=== PATIENT | female | born 2005 | race Caucasian/White ===

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

== ENCOUNTER → 2024-01-26 11:32 | Outpatient (BNVA) | payer MEDICAID, SELFPAY | PROVIDERS: Visit Provider Nurse Practitioner Women's Health | DX: R10.2 Pelvic and perineal pain; F41.9 Anxiety disorder, unspecified; F32.A Depression, unspecified | CPT/HCPCS: 81025; 84315 ==

== ENCOUNTER → 2024-01-27 10:53 | Outpatient (BNVA) | payer MEDICAID, SELFPAY | PROVIDERS: Visit Provider Nurse Practitioner Women's Health | DX: R10.2 Pelvic and perineal pain (principal) | CPT/HCPCS: 76830 ==

== ENCOUNTER 2024-11-17 22:40 | Inpatient (IN) | payer MEDICAID, SELFPAY ==
[2024-11-17 22:57] VITALS: BP 96/62; PULSE 111; RESP 16; TEMP 37.3; O2SAT 100
--- NOTE | 2024-11-17 23:12 | PC.NURSE ---
96 Hour Involuntary Hold Patient Rights have been reviewed with the patient and a copy of the same has been provided to her. Teacher Industrial [employer] Bev was present at the bedside during the presentation of Rights.
--- NOTE | 2024-11-17 23:15 | W.ED.PSYCHS ---
HPI - Psych General: Chief Complaint: Psychiatric Symptoms Stated Complaint: Si wants someone to talk to Time Seen by Provider: 11/17/24 23:09 History of Present Illness: 19-year-old female with history of depression and previous suicidal ideation admissions and self-harm in the past who presents to the emergency room with worsening depression and suicidal thoughts. She has no specific plan. She and attempt to cut her wrist 2 years ago. She sees a psychiatrist and takes Abilify. Related Data Previous Rx's ?Medication ?Instructions ?Recorded estradiol 0.01% (0.1 mg/gram) 1 g vaginal DAILY #42.5 grams 02/12/24 vaginal cream Allergies Allergy/AdvReac Type Severity Reaction Status Date / Time kiwi Allergy Unknown Unknown Uncoded 02/12/24 08:14 Review of Systems Narrative: Constitutional symptoms: Negative except as documented in HPI. Skin symptoms: Negative except as documented in HPI. Eye symptoms: Negative except as documented in HPI. ENMT symptoms: Negative except as documented in HPI. Respiratory symptoms: Negative except as documented in HPI. Cardiovascular symptoms: Negative except as documented in HPI. Gastrointestinal symptoms: Negative except as documented in HPI. Genitourinary symptoms: Negative except as documented in HPI. Musculoskeletal symptoms: Negative except as documented in HPI. Neurologic symptoms: Negative except as documented in HPI. Psychiatric symptoms: Negative except as documented in HPI. Endocrine symptoms: Negative except as documented in HPI. COUNTS INCLUDE 234 BEDS AT THE [facility] ED PFSH: Medical History Insomnia Psychosis Psychiatric care Family History Grandmother Breast cancer Denies family history of Colon cancer Ovarian cancer Prostate cancer Diabetes Heart disease Hypertension Uterine cancer Thyroid disease Stroke Social History Smoking and tobacco/nicotine status: never used tobacco/nicotine Physical Exam Narrative: EXAM NARRATIVE: General: Alert. no acute distress Skin: Warm, dry Head: Normocephalic, atraumatic. Neck: Supple, trachea midline. Eye: Extraocular movements are intact. Ears, nose, mouth and throat: Oral mucosa moist. Cardiovascular: Regular rate and rhythm, Normal peripheral perfusion. Respiratory: Lungs are clear to auscultation, respirations are non-labored, breath sounds are equal, Symmetrical chest wall expansion. Gastrointestinal: Soft, Nontender, Non distended Musculoskeletal: Normal ROM, no deformity. Neurological: Alert and oriented. No focal neurological deficit observed. Psychiatric: Cooperative, depressed, expresses suicidal ideation. Course Vital Signs: Vital signs: Vital Signs Temperature 99.1 F 11/17/24 22:57 Pulse Rate 111 H 11/17/24 22:57 Respiratory Rate 16 11/17/24 22:57 Blood Pressure 96/62 11/17/24 22:57 Pulse Oximetry 100 11/17/24 22:57 Oxygen Delivery Me thod Room Air 11/17/24 22:57 MDM - Psych Medical Decision Making Differential diagnosis: Patient with reported depression and suicidal ideation. concerns for infection, alcohol intoxication, cardiac issues or other medical problems prior to psychiatric admission. Workup: labwork, ekg ordered to evaluate the pathologies and to clear the patient medically prior to psychiatric admission Lab Review: Laboratory results were reviewed and interpreted by myself the emergency room physician. - Medically cleared. - EKG shows no ischemic changes. - Blood alcohol level is negative, -Tylenol and salicylate levels are negative. - Drug screen is negative - No signs of infection, urinalysis clear and white count is not elevated - No anemia. - BUN and creatinine are within normal limits. Consultation: I spoke with Dr. Rankin who is on-call for psychiatry service who agrees to admission. Assessment and plan: Suicidal ideation Depression -Admission to neuropsychiatric unit for continued evaluation and treatment. - All lab work was reviewed and interpreted personally by myself, the ER physician - Evaluation and treatment of this problem were appropriate in the emergency setting Lab Data 11/18/24 00:45 11/18/24 00:45 Laboratory Results HCG, Qual Negative (Negative) 11/17/24 22:56 Urine Color Yellow (Yellow) 11/17/24:56 Urine Appearance Clear (CLEAR) 11/17/24 22:56 Urine pH 7.5 (5-7) 11/17/24 22:56 Ur Specific [place] 1.016 (1.005-1.030) 11/17/24 22:56 Urine Protein Negative (Negative) 11/17/24 22:56 Urine Glucose (UA) Negative (Normal) 11/17/24 22:56 Urine Ketones Negative (Negative) 11/17/24 22:56 Urine Blood Negative (Negative) 05/15/25 22:56 Urine Nitrate Negative (Negative) 11/17/24 22:56 Urine Bilirubin Negative (Negative) 11/17/24 22:56 Urine Urobilinogen 0.2 mg/dL (Negative) 11/17/24 22:56 Ur Leukocyte Esterase Negative (Negative) 11/17/24 22:56 Urine RBC 0-2 /hpf (0-2) 11/17/24 22:56 Urine WBC 0-5 /hpf (0-5) 11/17/24 22:56 Ur Squamous Epith Cells 0-5 /hpf (0-5) 11/17/24 22:56 Amorphous Sediment Not Reportable 11/17/24 22:56 Urine Bacteria None seen /hpf (NONE) 11/17/24 22:56 Hyaline Casts 0-4 /lpf H 11/17/24 22:56 Urine Opiates Screen Negative ng/mL (Negative) 11/17/24 22:56 Ur Barbiturates Screen Negative ng/mL (Negative) 11/17/24 22:56 Ur Phencyclidine Scrn Negative ng/mL (Negative) 11/17/24 22:56 Ur Amphetamines Screen Negative ng/mL (Negative) 11/17/24 22:56 U Benzodiazepines Scrn Negative ng/mL (Negative) 11/17/24 22:56 Urine Cocaine Screen Negative ng/mL (Negative) 11/17/24 22:56 U Marijuana (THC) Screen Negative ng/mL (Negative) 11/17/24 22:56 No radiology studies performed this visit Discharge Plan Discharge Patient Disposition: Admitted As Inpatient Admit Provider: Frank Rankin Clinical Impression: Suicidal ideation, Depression Condition: Stable Coding Level of Care Code ED Legal Aid for Josselyn Celeste
--- NOTE | 2024-11-17 23:19 | ECG_ITS ---
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
[2024-11-18 00:12] LABS: Bilirubin Urine Negative (Negative); Blood Urine Negative (Negative); Glucose Urine UA Negative (Normal); Ketones Urine Negative (Negative); Leukocyte Esterase Urine Negative (Negative); Nitrate Urine Negative (Negative); Protein Urine Negative (Negative); Specific Gravity, Urine 1.016 (1.005-1.030); Urine Appearance Clear (CLEAR); Urine Color Yellow (Yellow); Urobilinogen Urine 0.2 mg/dL (Negative); pH Urine 7.5 (5-7)
[2024-11-18 00:15] LABS: HCG Qualitative Urine. Negative (Negative)
[2024-11-18 00:17] LABS: Add Urine Microscopic? YES; Bacteria Urine None Seen /hpf; Hyaline Casts Urine 0-4 /lpf; RBC Urine 0-2 /hpf (0-2); Squamous Epithelial Cell Urine 0-5 /hpf (0-5); WBC Urine 0-5 /hpf (0-5)
[2024-11-18 00:27] LABS: Amphetamines Screen Urine Negative (Negative); Barbiturates Screen Urine Negative (Negative); Benzodiazepines Screen Urine Negative (Negative); Cocaine Screen Urine Negative (Negative); Opiate Screen Urine Negative (Negative); PCP Screen Urine Negative (Negative); THC Screen Urine Negative (Negative)
[2024-11-18 00:59] LABS: Basophils # 0.1 10^3/uL (0.0-0.1); Basophils % 0.6 %; Eosinophils # 0.4 10^3/uL (0.0-0.8); Eosinophils % 3.9 %; Hematocrit 37.7 % (36-47); Lymphocytes # 2.5 10^3/uL (1.5-6.5); Lymphocytes % 25.1 %; Mean Corpuscular HGB Conc 31.8 g/dL (30-55); Mean Corpuscular Hemoglobin 29.1 pg (27-33); Mean Corpuscular Volume 91.5 fl (85-98); Mean Platelet Volume 9.9 fL (7.4-10.4); Monocytes # 0.8 10^3/uL (0.2-0.9); Monocytes % 8.2 %; Neutrophils # 6.24 10^3/uL (1.8-8.0); Neutrophils % 61.8 %; Nucleated Red Blood Cells % 0 %; Platelet Count 273 10^3/cmm (157-399); Red Blood Count 4.12 10^6/uL (3.85-5.65); Red Cell Distribution Width 13.1 % (12.1-15.1)
[2024-11-18 01:24] LABS: Alanine Aminotransferase 20 U/L (0-33); Alkaline Phosphatase 62 U/L (35-105); Blood Urea Nitrogen 12 mg/dL (6-20); Calcium 8.9 mg/dL (8.5-10.5); Carbon Dioxide 20 mmol/L (22-29); Chloride 106 mmol/L (98-107); Creatinine Clr Calc Pharmacy 132.1571; Globulin 2.5 g/dL (1.3-4.6); Glomerular Filtration Rate 127.5 mL/min (90-130); Glucose 89 mg/dL (65-115); Osmolality Calculated 285 mOsm/kg (285-295); Salicylate 1.3 mg/dL (3-10); Sodium 138 mmol/L (136-145); Thyroid Stimulating Hormone 1.27 uIU/mL (0.27-4.20); Total Bilirubin 0.5 mg/dL (0.15-1.2); Total Protein 6.5 g/dL (6.6-8.7)
[2024-11-18 01:29] LABS: Acetaminophen < 5.0 ug/mL (10-30); Alcohol Level < 10 mg/dL (0-10); Aspartate Amino Transferase 22 U/L (0-32)
[2024-11-18 01:56] VITALS: BP 102/62; PULSE 108; RESP 18; TEMP 37.2; O2SAT 99
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
[2024-11-18 06:00] VITALS: BP 92/61; PULSE 94; RESP 17; TEMP 36.9; O2SAT 94
[2024-11-18] MEDS: ARIPiprazole 10 mg Tablet PO (08:25)
[2024-11-18] MEDS: acetaminophen 325 mg Tablet 650 MG PO (08:27)
[2024-11-18 14:00] VITALS: BP 107/60; PULSE 100; RESP 18; TEMP 37.1; O2SAT 100
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
[2024-11-18] MEDS: trazodone 50 mg Tablet PO (20:36)
[2024-11-18] MEDS: hyDROXYzine 25 mg Capsule 50 MG PO (20:36)
[2024-11-18 21:24] VITALS: BP 98/72; PULSE 102; RESP 16; TEMP 36.7; O2SAT 94
[2024-11-19 06:00] VITALS: BP 92/56; PULSE 91; RESP 16; TEMP 36.8; O2SAT 98
[2024-11-19] MEDS: ARIPiprazole 10 mg Tablet PO (08:19)
[2024-11-19] MEDS: acetaminophen 325 mg Tablet 650 MG PO (08:20)
--- NOTE | 2024-11-19 11:39 | W.PM.NPUPNS ---
Subjective NPU Subjective: Patient presented today reporting that she is doing okay. She reported that she was fine with the plan of starting Prozac after discussion of the risks, benefits and alternatives she understood and agreed to proceed as is documented in this note. She denies any side effects from her medications thus far and endorsed a desire to be allowed to discharge as soon as is feasible. We talked about the likelihood of discharge on Thursday. Mental Status Exam MSE Comments: This is a well-nourished well-developed -[place] female with appropriate dress grooming and eye contact. In hospital scrubs. No abnormal movements except for mild psychomotor retardation. Cooperative with exam and mild distress. Speech was slightly decreased rate and volume. Mood described as a little better than yesterday, affect congruent. Thought process organized. Thought content: Patient endorsed having suicidal ideation leading to the hospitalization, she denied homicidal ideation, there were no delusions reported or noted, she denied any auditory or visual hallucinations. Attention and concentration were intact and memory appeared reliable but none were formally tested. She is alert and oriented x 3. Insight and judgment are fair impulse control limited. Vitals/I&O/Wt Last Vital Signs Temp 98.2 F 11/19/24 06:00 Pulse 91 11/19/24 06:00 Resp 16 11/19/24 06:00 BP 92/56 11/19/24 06:00 Pulse Ox 98 11/19/24 06:00 O2 Del Method Room Air 11/18/24 06:00 Weight last 48 hrs Weight 54.431 kg Data NPU 11/18/24 00:45 11/18/24 00:45 A&P Assessment and plan (1) Anxiety and depression: (2) Psychosis: (3) Suicidal ideation: (4) PTSD (post-traumatic stress disorder): (5) Major depressive disorder, recurrent episode: Plan This is a 19-year-old -[place] female with a long history of trauma and mental health issues and some treatment with a recent initiation of Abilify but problems with ongoing depression, anxiety and mood dysregulation. She presents open to getting her medications optimized. 1. Continue current medication. Started Prozac and continue Abilify with possible increase to 10 mg p.o. daily. 2. Continue every 15 minute checks for safety. 3. Encourage individual, group and milieu therapy. 4. Obtain collateral information. 6. Evaluate against the backdrop of a 96-hour hold. PDMP PDMP Reviewed: Not Reviewed Involuntary Hold Information Hold Status: Legal Status: 96 Hour Hold Date/Time Hold Expires: 11/23/24@9822 Attestations NPU Medical Necessity Statement*: Inpatient hospitalization is medically necessary and the clinically appropriate intervention at this time. We will monitor medications and make changes and adjustments as indicated. Likely length of stay 2-4 days. Coding Level of Care Code Acute Code for g Fwd Diagnoses Anxiety and depression F41.9; F32.A Psychosis F29 Suicidal ideation R45.851 PTSD (post-traumatic stress disorder) F43.10 Major depressive disorder, recurrent episode F33.9
[2024-11-19] MEDS: fluoxetine 20 mg Capsule PO (12:13)
[2024-11-19 14:00] VITALS: BP 97/66; PULSE 80; RESP 15; O2SAT 99
[2024-11-19 20:43] VITALS: BP 89/53; PULSE 116; RESP 17; TEMP 36.9; O2SAT 99; BMI 20.9
[2024-11-19] MEDS: hyDROXYzine 25 mg Capsule 50 MG PO (20:53)
[2024-11-19] MEDS: trazodone 50 mg Tablet PO (20:53)
[2024-11-20 06:00] VITALS: BP 96/64; PULSE 114; RESP 16; TEMP 36.7; O2SAT 96
--- NOTE | 2024-11-20 07:48 | P.NPUPN_ITS ---
Subjective NPU 2 Subjective: Patient presented today reporting that she feels like she is doing much better. She reports feeling significantly better and not having any continued circumstances that require hospitalization. We discussed working with the social work team tomorrow to get aftercare in place and the plan for discharge likely tomorrow morning. Mental Status Exam 2 MSE Comments: This is a well-nourished well-developed -Bulgarian female with appropriate dress grooming and eye contact. In hospital scrubs. No abnormal movements except for mild psychomotor retardation. Cooperative with exam and mild distress. Speech was slightly decreased rate and volume. Mood described as a little better than yesterday, affect congruent. Thought process organized. Thought content: Patient endorsed having suicidal ideation leading to the hospitalization, she denied homicidal ideation, there were no delusions reported or noted, she denied any auditory or visual hallucinations. Attention and concentration were intact and memory appeared reliable but none were formally tested. She is alert and oriented x 3. Insight and judgment are fair impulse control limited. Vitals/I&O/Wt Last Vital Signs Temp 98.1 F 11/20/24 06:00 Pulse 114 H 11/20/24 06:00 Resp 16 11/20/24 06:00 BP 96/64 11/20/24 06:00 Pulse Ox 96 11/20/24 06:00 O2 Del Method Room Air 11/20/24 06:00 Weight last 48 hrs Weight 57.153 kg Data NPU 11/18/24 00:45 11/18/24 00:45 A&P Assessment and plan (1) Anxiety and depression: (2) Psychosis: (3) Suicidal ideation: (4) PTSD (post-traumatic stress disorder): (5) Major depressive disorder, recurrent episode: Plan This is a 19-year-old -Bulgarian female with a long history of trauma and mental health issues and some treatment with a recent initiation of Abilify but problems with ongoing depression, anxiety and mood dysregulation. She presents open to getting her medications optimized. 1. Continue current medication. Started Prozac and continue Abilify. Increased to 10 mg p.o. daily. 2. Continue every 15 minute checks for safety. 3. Encourage individual, group and milieu therapy. 4. Obtain collateral information. 6. Evaluate against the backdrop of a 96-hour hold. PDMP PDMP Reviewed: Not Reviewed Involuntary Hold Information 2 Hold Status: Legal Status: 96 Hour Hold Date/Time Hold Expires: @2312 Attestations NPU 2 Medical Necessity Statement*: Inpatient hospitalization is medically necessary and the clinically appropriate intervention at this time. We will monitor medications and make changes and adjustments as indicated. Likely length of stay 1-3 days. Coding Level of Care Code Acute Code for Chg Fwd Diagnoses Anxiety and depression F41.9; F32.A Psychosis F29 Suicidal ideation R45.851 PTSD (post-traumatic stress disorder) F43.10 Major depressive disorder, recurrent episode F33.9
[2024-11-20] MEDS: fluoxetine 20 mg Capsule PO (08:17)
[2024-11-20] MEDS: ARIPiprazole 10 mg Tablet PO (08:17)
[2024-11-20 14:00] VITALS: BP 93/63; PULSE 78; RESP 16; TEMP 37.1; O2SAT 99
[2024-11-20] MEDS: acetaminophen 325 mg Tablet 650 MG PO (17:30)
[2024-11-20] MEDS: trazodone 50 mg Tablet PO (19:49)
[2024-11-20] MEDS: hyDROXYzine 25 mg Capsule 50 MG PO (19:49)
[2024-11-20 20:22] VITALS: BP 95/66; PULSE 81; RESP 17; TEMP 36.8; O2SAT 97
[2024-11-21 06:00] VITALS: BP 89/53; PULSE 99; RESP 17; TEMP 36.7; O2SAT 98
[2024-11-21] MEDS: ARIPiprazole 10 mg Tablet PO (08:10)
[2024-11-21] MEDS: fluoxetine 20 mg Capsule PO (08:10)
[2024-11-21] MEDS: acetaminophen 325 mg Tablet 650 MG PO (08:11)
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
[2024-11-21 12:40] VITALS: BP 94/57; PULSE 77; RESP 16; TEMP 36.9; O2SAT 100
== END 2024-11-21 14:35 | disposition home or self-care (01) | DRG 885 ==
LOC: ER 11-18 00:30 → NP 11-18 01:35
PROVIDERS: Admitting Provider Psychiatry & Neurology Psychiatry; Emergency Provider Emergency Medicine; Visit Provider Psychiatry & Neurology Psychiatry
DX: F33.3 Major depressive disorder, recurrent, severe with psychotic symptoms (principal); R45.851 Suicidal ideations; F41.9 Anxiety disorder, unspecified; F43.10 Post-traumatic stress disorder, unspecified; Z91.51 Personal history of suicidal behavior; Z59.89 Other problems related to housing and economic circumstances; F44.81 Dissociative identity disorder; Z62.810 Personal history of physical and sexual abuse in childhood; F60.3 Borderline personality disorder
CPT/HCPCS: 36415; 80053; 80306; 80307; 81001; 81025; 84443; 85025; 93005; 97150; 97165; 99285; J9999